=== PATIENT | female | born 1990 | race American Indian/Alaskan Native ===

== ENCOUNTER 2017-01-17 12:58 | Emergency (ER) | payer SELFPAY ==
[2017-01-17 13:13] VITALS: BP 115/58
[2017-01-17 14:23] LABS: Basophils % (Auto) 1.1 % (0.0-1.8); Eosinophils % (Auto) 1.1 % (0.0-4.3); Hematocrit 31.6 % (30.3-42.9); Mean Corpuscular HGB Conc 32 % (30-34); Platelet Count 326 K/mm3 (140-440); Red Blood Count 4.78 M/mm3 (3.65-5.03); White Blood Count 9.4 K/mm3 (4.5-11.0)
[2017-01-17 14:33] LABS: Mean Corpuscular Hemoglobin 21 pg (28-32); Mean Corpuscular Volume 66 fl (79-97); Red Cell Distribution Width 21.5 % (13.2-15.2)
[2017-01-17 14:43] LABS: Anion Gap 17 mmol/L; BUN/Creatinine Ratio 11.42; Blood Urea Nitrogen 8 mg/dL (7-17); Calcium 9.3 mg/dL (8.4-10.2); Carbon Dioxide 25 mmol/L (22-30); Chloride 102.2 mmol/L (98-107); Glucose 112 mg/dL (65-100); Potassium 4.1 mmol/L (3.6-5.0); Sodium 140 mmol/L (137-145)
[2017-01-17 16:48] LABS: Bacteria,Urine 1+ /HPF (Negative); Bilirubin,Urine NEG (Negative); Blood,Urine NEG (Negative); Ketones,Urine NEG (Negative); Leukocyte Esterase,Urine LG (Negative); Mucus,Urine FEW /HPF; Nitrite,Urine NEG (Negative); Protein,Urine <15 mg/dL mg/dL (Negative); Urobilinogen,Urine < 2.0 mg/dL (<2.0); WBC,Urine < 1.0 /HPF (0.0-6.0)
--- NOTE | 2017-01-19 00:32 | ED Elopement Review ---
ED Pt Elopement review - Results review Lab results: Laboratory Tests 01/17/17 01/17/17 01/17/17 13:18 13:18 16:16 WBC 9.4 RBC 4.78 Hgb 10.0 L Hct 31.6 MCV 66 L MCH 21 L MCHC 32 RDW 21.5 H Plt Count 326 Lymph % (Auto) 29.8 [place] % (Auto) 9.6 H Eos % (Auto) 1.1 Baso % (Auto) 1.1 Lymph # 2.8 [place] # 0.9 H Eos # 0.1 Baso # 0.1 Seg Neutrophils % 58.4 Seg Neutrophils # 5.5 Sodium 140 Potassium 4.1 Chloride 102.2 Carbon Dioxide 25 Anion Gap 17 BUN 8 Creatinine 0.7 Estimated GFR > 60 BUN/Creatinine Ratio 11.42 Glucose 112 H Calcium 9.3 Urine Color Yellow Urine Turbidity Clear Urine pH 6.0 Ur Specific [place] 1.015 Urine Protein <15 mg/dl Urine Glucose (UA) Neg Urine Ketones Neg Urine Blood Neg Urine Nitrite Neg Ur Reducing Substances Not Reportable Urine Bilirubin Neg Urine Ictotest Not Reportable Urine Urobilinogen < 2.0 Ur Leukocyte Esterase Lg Urine WBC (Auto) < 1.0 Urine RBC (Auto) 2.0 U Epithel Cells (Auto) 4.0 Urine Bacteria (Auto) 1+ Calcium Oxalate Crystal 1+ Urine Mucus Few Urine HCG, Qual Positive A - Call Back decision Pt Call Back Decision: No action required
== END 2017-01-17 15:10 | disposition left against medical advice (07) ==
LOC: ED 12:58
DX: R10.2 Pelvic and perineal pain (principal); Z53.21 Procedure and treatment not carried out due to patient leaving prior to being seen by health care provider
CPT/HCPCS: 36415; 80048; 81001; 81025; 85025

== ENCOUNTER 2017-08-05 15:48 | Observation (INO) | payer MEDICAID ==
[2017-08-05] MEDS ORDERED: LACTATED RINGERS 1,000 ML IV ONE (16:00)
[2017-08-05 16:21] LABS: Urine Drugs of Abuse Note Disclamer
[2017-08-05 17:40] LABS: Bilirubin,Urine Negative (Negative); Blood,Urine Negative (Negative); Ketones,Urine Negative (Negative); Leukocyte Esterase,Urine Large (Negative); Nitrite,Urine Negative (Negative); Protein,Urine <15 mg/dL mg/dL (Negative); Urobilinogen,Urine < 2.0 mg/dL (<2.0)
[2017-08-05 18:02] LABS: Basophils % (Auto) 0.5 % (0.0-1.8); Eosinophils % (Auto) 0.6 % (0.0-4.3); Hematocrit 23.8 % (30.3-42.9); Hemoglobin 7.6 gm/dl (10.1-14.3); Mean Corpuscular HGB Conc 32 % (30-34); Mean Corpuscular Hemoglobin 22 pg (28-32); Mean Corpuscular Volume 68 fl (79-97); Platelet Count 169 K/mm3 (140-440); Red Blood Count 3.52 M/mm3 (3.65-5.03); White Blood Count 8.7 K/mm3 (4.5-11.0)
[2017-08-05 18:30] LABS: Bacteria,Urine 1+ /HPF (Negative); Trichomonas,Urine Present /HPF
[2017-08-05 18:39] LABS: HIV-1 Antigen p24 Non React (Non React); HIVR-1/2 Ab Non React (Non React)
[2017-08-05] MEDS ORDERED: SUBLIMAZE IV ONE (19:00)
[2017-08-05] MEDS ORDERED: MAGNESIUM SULFATE 4GM/100ML 4 GM/100 ML BAG IV ONE (20:16)
[2017-08-05] MEDS: LACTATED RINGERS 1,000 ML IV SCH (20:38)
[2017-08-05] MEDS: SUBLIMAZE IV PRN (20:44)
[2017-08-05] MEDS: CELESTONE SOLUSPAN IM SCH (20:48)
[2017-08-05] MEDS: MAGNESIUM SULFATE 40GM/1000ML 40 GM/1,000 ML BAG IV SCH (21:14)
[2017-08-06] MEDS: SUBLIMAZE IV PRN ×5 (01:24→22:45)
[2017-08-06] MEDS: STADOL IV PRN ×2 (04:31→19:24)
--- NOTE | 2017-08-06 07:03 | History and Physical Report ---
History of Present Illness Date of examination: 08/05/17 Date of admission: 08/05/17 19:37 Chief complaint: I'm having contractions History of present illness: Patient is a 26 year old who presents to L&d with complaint of contractions. Patient has had no care with this . Past History Past Medical History: no pertinent history Past Surgical History: no surgical history Social history: single - Obstetrical History Expected Date of Delivery: 09/17/17 Actual Gestation: 34 Week(s) 0 Day(s) : 3 Medications and Allergies Allergies Allergy/AdvReac Type Severity Reaction Status Date / Time No Known Allergies Allergy Verified 10/16/15 18:00 Home Medications Medication Instructions Recorded Confirmed Last Taken Type HYDROcodone/APAP 5-325 [[place] 1 each PO Q6HR PRN #14 tablet 04/02/16 08/06/17 Rx 5/325] Vit-Fe Fumar-FA [ 1 tab PO QDAY 08/06/17 08/06/17 07/21/17 History Vitamin] Active Meds: Active Medications Betamethasone Acet/Betameth SodPhos (Celestone Soluspan) 12 mg IM Q24H FESTUS Stop: 08/06/17 21:01 Last Admin: 08/05/17 20:48 Dose: 12 mg Butorphanol Tartrate (Stadol) 1 mg IV Q2H PRN PRN Reason: Labor Pain Last Admin: 08/06/17 04:31 Dose: 1 mg Fentanyl (Sublimaze) 100 mcg IV Q2HR PRN PRN Reason: Labor Pain Last Admin: 08/06/17 01:24 Dose: 100 mcg Lactated Ringer's (Lactated Ringers) 1,000 mls @ 125 mls/hr IV DIRECT FESTUS Last Admin: 08/05/17 20:38 Dose: 125 mls/hr Magnesium Sulfate (Magnesium Sulfate 40gm/1000ml) 40 gm in 1,000 mls @ 50 mls/ hr IV DIRECT FESTUS PRN Reason: 2 GM/HR Last Admin: 08/05/17 21:14 Dose: 2 gm/hr, 50 mls/hr Review of Systems All systems: negative Genitourinary: contractions - Vital Signs Vital signs: Vital Signs Pulse Pulse Ox 80 99 08/05/17 16:05 08/05/17 16:05 Temp Pulse Resp BP Pulse Ox 97.8 F 91 H 18 95/51 97 08/06/17 04:06 08/06/17 06:55 08/06/17 04:06 08/06/17 06:30 08/06/17 06:55 - Physical Exam Cardiovascular: Regular rate, Normal S1, Normal S2 Lungs: Positive: Clear to auscultation, Normal air movement Abdomen: Positive: normal appearance, soft, normal bowel sounds Genitourinary (Female): Positive: normal external genitalia, normal perenium Vagina: Positive: normal moisture Uterus: Positive: normal size, normal contour - Obstetrical FHR: auscultation normal Cervical Dilatation: 3 Cervical Effacement Percentage: 50 station: -3 Uterine Contraction Pattern: Regular Results Result Diagrams: 08/05/17 17:26 Abnormal lab results 08/05/17 08/05/17 08/06/17 Range/Units 16:08 17:26 01:14 RBC 3.52 L (3.65-5.03) M/mm3 Hgb 7.6 L (10.1-14.3) gm/dl Hct 23.8 L (30.3-42.9) % MCV 68 L (79-97) fl MCH 22 L (28-32) pg RDW 19.0 H (13.2-15.2) % [place] % (Auto) 7.6 H (0.0-7.3) % Seg Neutrophils % 71.8 H (40.0-70.0) % Magnesium 3.90 H (1.7-2.3) mg/dL Urine WBC (Auto) 20.0 H (0.0-6.0) /HPF All other labs normal. Assessment and Plan IUP at 34 weeks with no care who presents with labor at 34 weeks. Admit for mag therapy and steroids.
--- NOTE | 2017-08-06 08:39 | Ultrasound Report ---
BIOPHYSICAL PROFILE: INDICATION: No care, contractions. COMPARISON: None similar. TECHNIQUE: Transabdominal ultrasound with Doppler interrogation. 2 - breathing movements 2 - movements 2 - posture and tone 2 - Qualitative amniotic fluid volume 8 - TOTAL SCORE OF POSSIBLE 8 Heart Rate (bpm) 134 CONCLUSION: Findings, as above.
[2017-08-06] MEDS: LACTATED RINGERS 1,000 ML IV SCH ×2 (08:45→21:08)
--- NOTE | 2017-08-06 08:49 | Ultrasound Report ---
OB ULTRASOUND GREATER THAN 14 WEEKS INDICATION: No care, contractions. COMPARISON: None similar. TECHNIQUE: Transabdominal grayscale ultrasound with Doppler interrogation. Gestation: Vivar Position: Cephalic Amniotic Fluid: WNL (7-24 cm) SHANNA = 14.5 cm Placenta: Fundal Placental Grade: II Heart Rate: 134 BPM Cervical length: 3 cm (Normal > 3 cm) NEUROANATOMY VISUALIZED: Choroid Plexus Cisterna Magnum Cerebellum Lateral Ventricle ANATOMY VISUALIZED: Stomach Kidneys Bladder Diaphragm 4 Chamber Heart Heart 3 Vessel Cord Abd. Cord Insert SPINE VISUALIZED: Longitudinal Transverse The following are not demonstrated due to maternal body habitus or lie: BPD: 8.5 cm = 34 w 1 d HC: 30.7 cm = 34 w 1 d AC: 29.1 cm = 33 w 1 d FL: 6.6 cm = 34 w 1 d HC/AC Ratio: 1.05 Cephalic Index: 87.8 Estimated Weight: 2235 grams Clinical age = 34 w 1 d EDC: 09/15/2017 US Gest. Age = 33 w 6 d EDC: 09/17/2017 CONCLUSION: Single, viable intrauterine gestation with ultrasound estimated age of 33 weeks and 6 days and EDC of 09/17/2017, currently in vertex lie with details, as above. Thank you for the opportunity to participate in this patient's care.
[2017-08-06] MEDS: MAGNESIUM SULFATE 40GM/1000ML 40 GM/1,000 ML BAG IV SCH (14:10)
[2017-08-06] MEDS: CELESTONE SOLUSPAN IM SCH (21:09)
[2017-08-07] MEDS: SUBLIMAZE IV PRN ×5 (01:22→14:16)
[2017-08-07] MEDS ORDERED: PROCARDIA*For Tocolysis only PO SCH (09:00)
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
[2017-08-07] MEDS ORDERED: FLAGYL PO ONE (11:00)
[2017-08-07 12:31] VITALS: BP 112/67
--- NOTE | 2017-08-07 15:02 | Event Note ---
Date: 08/07/17 In to see patient. She states that she is feeling much better now with the Procardia. Patient has already spoken to social media developer. Will plan for discharge on today.
--- NOTE | 2017-08-07 15:04 | Discharge Summary ---
Providers - Providers Date of Admission: 08/05/17 19:37 Date of discharge: 08/07/17 Attending physician: ANTON SINGH 08/07/17 10:06 Consult to Case Management [CONS] Urgent Services Needed at Discharge: [employer]ato Inspector Notified:: case management Additional Physician Instructions: Pateint reports being homeless Primary care physician: ANTON SINGH Hospitalization Reason for admission: other (pretermn contractions) Episiotomy: none Laceration: none Discharge diagnosis: other Hospital course: Issues resolved Condition at discharge: Good Disposition: DC-01 TO HOME OR SELFCARE Plan - Discharge Medications Prescriptions: NIFEdipine [Procardia] 10 mg PO Q6H #40 capsule - Provider Discharge Summary Activity: routine, no sex for 6 weeks, no heavy lifting 4 weeks, no strenuous exercise Diet: routine Instructions: routine Additional instructions: [] Smoking cessation referral if applicable(refer to patient education folder for contact #) [] Refer to [facility] Booklet Call your doctor immediately for: * Fever > 100.5 * Heavy vaginal bleeding ( >1 pad per hour) * Severe persistent headache * Shortness of breath * Reddened, hot, painful area to leg or breast * Drainage or odor from incision. * Keep incision clean and dry at all times and follow doctor's instructions regarding bathing/showering - Follow up plan Follow up: ANTON SINGH MD [Primary Care Provider] - 7 Days (Patient needs to find an ob provider)
== END 2017-08-07 16:30 | disposition home or self-care (01) ==
LOC: TRG 15:48 → LD 19:36 → TRG 19:37
PROVIDERS: ADMIT Obstetrics & Gynecology; ATTEND Obstetrics & Gynecology
DX: O62.9 Abnormality of forces of labor, unspecified (principal); O60.03 Preterm labor without delivery, third trimester; Z3A.34 34 weeks gestation of pregnancy
CPT/HCPCS: 36415; 76805; 76819; 80307; 81001; 83735; 85025; 85660; 86592; 86706; 86762; 86803; 86850; 86900; 86901; 87086; 87116; 87806; 96361; 96365; 96366; 96367; 96372; 96375; 96376; G0378; J0595; J0702; J3010; J3475; J7120

== ENCOUNTER 2017-08-11 15:17 | Outpatient (CLI) | payer MEDICAID ==
[2017-08-11] MEDS ORDERED: LACTATED RINGERS 1,000 ML IV ONE (15:18)
[2017-08-11 15:44] VITALS: BP 120/73
[2017-08-11 16:12] LABS: Urine Drugs of Abuse Note Disclamer
[2017-08-11 17:01] LABS: Bacteria,Urine 1+ /HPF (Negative); Bilirubin,Urine NEG (Negative); Blood,Urine NEG (Negative); Ketones,Urine NEG (Negative); Leukocyte Esterase,Urine MOD (Negative); Mucus,Urine FEW /HPF; Nitrite,Urine NEG (Negative); Protein,Urine <15 mg/dL mg/dL (Negative); Urobilinogen,Urine < 2.0 mg/dL (<2.0)
== END 2017-08-11 18:36 | disposition home or self-care (01) ==
LOC: TRG 15:17
PROVIDERS: ATTEND Obstetrics & Gynecology
DX: O47.03 False labor before 37 completed weeks of gestation, third trimester (principal); Z87.891 Personal history of nicotine dependence; Z3A.35 35 weeks gestation of pregnancy
CPT/HCPCS: 80307; 81001

== ENCOUNTER 2018-05-24 15:47 | Emergency (ER) | payer SELFPAY ==
[2018-05-24] MEDS ORDERED: NACL 0.9% 500 ML 500 ML IV ONE (16:33)
[2018-05-24] MEDS ORDERED: TYLENOL PO ONE (16:34)
[2018-05-24 17:12] LABS: Alanine Aminotransferase 36 units/L (7-56); Albumin 3.5 g/dL (3.9-5); BUN/Creatinine Ratio 13; Blood Urea Nitrogen 9 mg/dL (7-17); Calcium 8.4 mg/dL (8.4-10.2); Hemolysis Index 0
[2018-05-24 17:16] LABS: Hematocrit 23.8 % (30.3-42.9); Hemoglobin 7.4 gm/dl (10.1-14.3); Mean Corpuscular HGB Conc 31 % (30-34); Platelet Count 326 K/mm3 (140-440); Red Blood Count 3.73 M/mm3 (3.65-5.03)
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
[2018-05-24 17:22] LABS: Mean Corpuscular Hemoglobin 20 pg (28-32); Mean Corpuscular Volume 64 fl (79-97); Red Cell Distribution Width 26.2 % (13.2-15.2)
[2018-05-24 18:11] VITALS: BP 136/75
[2018-05-24] MEDS ORDERED: NORCO 5/325 PO ONE (18:12)
[2018-05-24 18:58] LABS: Basophils % (Manual) 0 % (0.0-1.8); Total Cells Counted 100
[2018-05-24 18:59] LABS: Anisocytosis 1+; Hypochromasia 1+
[2018-05-24 19:04] LABS: Target Cells 1+
[2018-05-24 19:05] LABS: Platelet Estimate Consistent w Auto; Tear Drop Cells 1+
== END 2018-05-25 00:30 | disposition home or self-care (01) ==
LOC: ED 15:47
DX: E86.0 Dehydration (principal); M54.6 Pain in thoracic spine; T67.5XXA Heat exhaustion, unspecified, initial encounter; Z87.898 Personal history of other specified conditions
CPT/HCPCS: 36415; 80053; 82550; 84703; 85007; 85025; 96360; 96361; 99284; J7040

== ENCOUNTER 2019-10-04 08:50 | Emergency (ER) | payer SELFPAY ==
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
[2019-10-04 10:09] LABS: Basophils # (Auto) 0.1 K/mm3 (0.0-0.1); Basophils % (Auto) 0.8 % (0.0-1.8); Eosinophils # (Auto) 0.1 K/mm3 (0.0-0.4); Eosinophils % (Auto) 0.9 % (0.0-4.3); Hematocrit 31.1 % (30.3-42.9); Hemoglobin 9.9 gm/dl (10.1-14.3); Mean Corpuscular HGB Conc 32 % (30-34); Monocytes # (Auto) 0.7 K/mm3 (0.0-0.8); Monocytes % (Auto) 8.3 % (0.0-7.3); Platelet Count 310 K/mm3 (140-440); Red Blood Count 4.81 M/mm3 (3.65-5.03)
[2019-10-04 10:13] LABS: Mean Corpuscular Volume 65 fl (79-97); Red Cell Distribution Width 20.3 % (13.2-15.2)
[2019-10-04 10:21] LABS: Bilirubin,Urine NEG (Negative); Blood,Urine NEG (Negative); Color,Urine Yellow (Yellow); Protein,Urine <15 mg/dL mg/dL (Negative); Urobilinogen,Urine < 2.0 mg/dL (<2.0)
[2019-10-04 10:29] LABS: BUN/Creatinine Ratio 20; Blood Urea Nitrogen 10 mg/dL (7-17); Calcium 9.8 mg/dL (8.4-10.2); Hemolysis Index 1
[2019-10-04 10:39] LABS: Amphetamine Screen,Urine PRESUMPTIVE NEGATIVE; Benzodiazepines Screen,Urine PRESUMPTIVE NEGATIVE; Cannabinoid Screen,Urine PRESUMPTIVE NEGATIVE; Methadone Screen,Urine PRESUMPTIVE NEGATIVE; Opiate Screen,Urine PRESUMPTIVE NEGATIVE
[2019-10-04 10:56] LABS: Cocaine Screen,Urine PRESUMPTIVE POSITIVE
[2019-10-04] MEDS ORDERED: ACETAMINOPHEN 500 MG TAB ONE (12:16)
[2019-10-04] MEDS ORDERED: ACETAMINOPHEN 500 MG TAB PO ONE (12:26)
[2019-10-04] MEDS ORDERED: ACETAMINOPHEN 325 MG TAB PO ONE (19:51)
[2019-10-04] MEDS ORDERED: ACETAMINOPHEN 325 MG TAB ONE (19:54)
[2019-10-05] MEDS ORDERED: IBUPROFEN 800 MG TAB ONE (02:28)
[2019-10-05] MEDS ORDERED: IBUPROFEN 800 MG TAB PO ONE (04:23)
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
[2019-10-05] MEDS ORDERED: ZIPRASIDONE MESYLATE 20 MG VIAL IM PRN (12:22)
[2019-10-05] MEDS ORDERED: ACETAMINOPHEN 500 MG TAB PO ONE (12:38)
[2019-10-05] MEDS: risperiDONE 0.25 MG TAB PO SCH ×2 (12:43→22:12)
[2019-10-05] MEDS: ESCITALOPRAM 10 MG TAB PO SCH (12:56)
--- NOTE | 2019-10-05 17:30 | XRay Report ---
XR ankle 2V RT INDICATION / CLINICAL INFORMATION: injury. COMPARISON: None available. FINDINGS: BONES/JOINT(S): No acute fracture or subluxation. No significant degenerative changes. SOFT TISSUES: There is a small metallic foreign body projecting over the distal Achilles tendon. ADDITIONAL FINDINGS: None. Signer Name: Dre Thornton MD Signed: 10/05/2019 5:25 PM Workstation Name: [id number]
[2019-10-05] MEDS: traZODone 50 MG TAB PO SCH (22:12)
[2019-10-06] MEDS ORDERED: ACETAMINOPHEN 500 MG TAB PO ONE (01:21)
[2019-10-06] MEDS ORDERED: ACETAMINOPHEN 325 MG TAB ONE ×2 (01:24→09:38)
[2019-10-06] MEDS: MELATONIN 5 MG TAB PO PRN (01:26)
[2019-10-06] MEDS ORDERED: ACETAMINOPHEN 325 MG TAB PO ONE (09:38)
[2019-10-06] MEDS: risperiDONE 0.25 MG TAB PO SCH ×2 (09:42→23:03)
[2019-10-06] MEDS: ESCITALOPRAM 10 MG TAB PO SCH (09:43)
--- NOTE | 2019-10-06 15:28 | Progress Note ---
Subjective - Reason for Consult Consult date: 10/06/19 Reason for consult: SI/HI ideations - Chief Complaint Chief complaint: During my interview with the patient today. She was lying down. Asleep. Easily arouses. A/O x 3. She is dressed appropriately. She makes fair eye contact. She says she's having a "change in her energy." She says she is now "more homicidal and less suicidal, but I'm still depressed." The patient says "every time I think about it I get more homicidal." She states, "the meds improved my mood and made me feel more calm." She says she is "still fearful of going home and afraid of what might happen." The patient says she slept good. She denies any problems with her appetite. REVIEW OF SYSTEMS Constitutional: Negative for weight loss ENT: Negative for stridor Respiratory: Negative for cough All other systems reviewed and are negative MSE Appearance: In bed. Appropriate clothing. Fair contact. Behavior: calm, cooperative Mood: Depressed Affect: consisted with mood, flat Thought Process: Goal directed Speech: Normal tone and pace Thought Content Harmfulness: Suicidal and homicidal Hallucinations: Denies Delusions: none elicited Consciousness: Alert Cognition/Memory: Good Insight/Judgment: Limited Assessment: Bipolar, Current Episode Depressed, Severe w/o Psychotic Features Treatment Plan Continue 1013 Medications: As prescribed Sitter: Defer to primary Medical: Per primary Disposition: The patient meets the requirement for acute inpatient hospitalization. Please transfer to acute facility when medically stable. Will continue to follow until the patient is transferred The patient verbalizes understanding and agreement of the treatment plan. Mental Status Exam - Vital signs Last Vital Signs Temp 98.5 F 10/06/19 07:27 Pulse 70 10/06/19 13:47 Resp 18 10/06/19 13:47 BP 101/62 10/06/19 13:47 Pulse Ox 99 10/06/19 13:47
[2019-10-06] MEDS: ACETAMINOPHEN 325 MG TAB PO PRN (20:12)
[2019-10-06] MEDS: traZODone 50 MG TAB PO SCH (23:03)
[2019-10-07] MEDS: ACETAMINOPHEN 325 MG TAB PO PRN ×3 (06:50→19:36)
[2019-10-07] MEDS: ESCITALOPRAM 10 MG TAB PO SCH (11:00)
[2019-10-07] MEDS: risperiDONE 0.25 MG TAB PO SCH ×2 (11:00→14:11)
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
[2019-10-08] MEDS: DOXEPIN 10 MG CAP PO SCH ×2 (00:30→23:56)
[2019-10-08] MEDS: risperiDONE 0.25 MG TAB PO SCH ×3 (00:30→23:56)
[2019-10-08] MEDS: ESCITALOPRAM 10 MG TAB PO SCH (10:14)
[2019-10-08] MEDS: ACETAMINOPHEN 325 MG TAB PO PRN (15:11)
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
[2019-10-09] MEDS: ESCITALOPRAM 10 MG TAB PO SCH (10:03)
[2019-10-09] MEDS: risperiDONE 0.25 MG TAB PO SCH ×2 (10:03→21:56)
[2019-10-09] MEDS: ACETAMINOPHEN 325 MG TAB PO PRN (10:49)
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
[2019-10-09] MEDS: DOXEPIN 10 MG CAP PO SCH (21:57)
[2019-10-09] MEDS: MELATONIN 5 MG TAB PO PRN (21:57)
[2019-10-10] MEDS: risperiDONE 0.25 MG TAB PO SCH (09:36)
[2019-10-10] MEDS: ESCITALOPRAM 10 MG TAB PO SCH (09:36)
[2019-10-10] MEDS: ACETAMINOPHEN 325 MG TAB PO PRN (09:37)
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
[2019-10-10] MEDS ORDERED: risperiDONE 1 MG TAB PO SCH (12:00)
[2019-10-10] MEDS ORDERED: risperiDONE 0.25 MG TAB PO ONE (14:04)
[2019-10-10 16:48] VITALS: BP 102/61
== END 2019-10-10 17:20 ==
LOC: ED 08:50 → EEVIPCON 08:50 → ED 10-10 17:20
DX: F31.9 Bipolar disorder, unspecified (principal); F23 Brief psychotic disorder
CPT/HCPCS: 36415; 80048; 80307; 80320; 81001; 84703; 85025; G0480